=== PATIENT | male | born 1980 | race Caucasian/White ===

== ENCOUNTER 2021-03-18 12:36 | Outpatient (CLI) | payer OTHER ==
[2021-03-18 13:26] VITALS: BP 138/86
--- NOTE | 2021-03-18 13:26 | SLEEP CARE CONSULTATION ---
Information from patient questionnaire entered by Tanika Bone. I have reviewed and concur with the information entered by Tanika Bone. This document represents the service I personally performed and the decisions made by me, Rosette Limon ARNP. History of Present Illness Service Date and Time: 03/18/2021 1236 Reason for Visit: New patient Chief Complaint: reports: Unrefreshed sleep, Snoring, Excessive daytime sleepiness, Observed pauses in breathing, Fatigue, Frequent awakenings at night Date of Onset: 20 years Usual bedtime: 10 pm Time it takes to fall asleep: 15-20 minutes Snores at night: Yes Observed to quit breathing while asleep: Yes Sleeps alone due to snoring: No Number of times waking at night: 7-8 Reasons for waking at night: reports: Snoring, Gasping for air, Bathroom Toss, Turn, or Twitch while sleeping: Yes Recalls having dreams: No Usually gets out of bed at: 6 am Feels refreshed in the morning: No Morning headache: Yes (resolves around 9 am; 3-4 times a week) Sleepy or fatigued during the day: Yes Ever fallen asleep while driving: Yes (drowsy driving, no accidents) Takes day naps: Yes (try to get one daily for about 1 hour or so) Dreams during day naps: No Prior sleep studies: Yes Year and Where: 2009 - [place], [place] - negative Additional HPI information: I had the pleasure of seeing MARSHALL LOWE today regarding the possibility of him having a sleep disorder. His current complaints are excessive daytime sleepiness, fatigue, observed pauses in breathing, snoring and unrefreshed sleep. He states that he has always been a heavy snorer. Over the last 3-4 years though he has developed a lot more fatigue and daytime sleepiness. He will even fall asleep when talking to other people at work. He has had to walk to wake up and then when sitting down again tries to go to sleep again. His is very concerned because he has pauses in breathing and she will wake him up to breathe. She is the reason he is here. He has no trouble going to sleep at night but wakes up several times a night to turn over during the night. He will wake up with headaches 3-4 times a week and will take Aleve as needed but won't have relief of the headache until later in the morning. He states that he always wakes up with a sore throat and has seen that his his uvula really long. He had a sleep study in about 2009 and was told that he snored most of the night but his oxygen did not go down the required amount. 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 - Parasomnia Symptoms Ever been unable to move upon waking from sleep: No Walks in sleep: No Talks in sleep: No Ever acted out dreams in sleep: Yes (moves his hands at night according to ) Ever felt weak in the knees when startled or emotional: No Bothered by creepy, crawly, restless sensations in legs: No Problems with memory or concentration: No Subjective Initial [place] Sleepiness Scale score: 20 (in 2020) Past Medical History Past Medical History: reports: Other (heartburn occasionally) Social History The patient's occupation is a [employer]. Patient is and lives in [place]. Have you smoked in the past 12 months: No Cigarettes per day (20/pack): 15 Years of smokin Quit date: 2015 Smoking Pack Years: 14.0 Alcohol use: Yes Alcohol amount and frequency: 3-4 drinks every couple of months Caffeine use: Yes Caffeine amount and frequency: 3 cups every day Family History Family history of sleep disordered breathing: Yes Family Hx Sleep Apnea: Sibling: Snoring Allergies and Home Medications Drug allergies reviewed: Yes (NKDA) Home medication list reviewed: Yes Allergy and home medication list: OTC Prilosec, prn Review of Systems Weight gain over past 5 years: 20 Cardiovascular: denies: high blood pressure Gastrointestinal: reports: heartburn Neurological: reports: headaches Psychiatric: reports: other (feel in a funk). denies: Attention Deficit Hyperactivity, anxiety, depression, mood disorder Ear/Nose/Throat: reports: dry mouth/throat, injury to nose (broken many times). denies: tonsillectomy Endocrine: denies: thyroid disease Immunologic: denies: allergies to food or environment Physical Exam Blood Pressure: 138/86 Cuff size: wrist Heart Rate: 83 O2 Saturation: 96 Height: 5 ft 10 in Weight: 323 lb Body Mass Index: 46.3 BMI Classification: Morbidly Obese Neck circumference: 20.5 (inches) Mouth and throat: narrow oropharynx Soft palate: normal Hard palate: arched Uvula: edematous Uvula visualization: 50% Mallampati Class II Tongue: normal in size Tonsils: 1+ Neck: normal w/o lymphadenopathy or thyromegaly Heart: regular rate and rhythm Lungs: clear bilaterally Impression and Plan 1. Suspected Obstructive Sleep Apnea-Hypopnea Syndrome, as suggested by a history of loud and irregular snoring, observed cessation of breath while asleep, gasping or choking in sleep, morning headache, frequent awakening during the night, unrefreshed sleep, and excessive daytime sleepiness. Narrow oropharynx and obesity are common predisposing factors for obstructive sleep apnea-hypopnea syndrome. I recommend proceeding to polysomnography to confirm the diagnosis and to assess severity. If the patient has significant sleep disordered breathing, a manual CPAP titration study will also be performed to find the optimal treatment pressure. I informed the patient of what the sleep studies involve and after some discussion, obtained agreement to proceed. The pathophysiology of obstructive sleep apnea-hypopnea syndrome was discussed with the patient and health risks of cardiovascular and cerebrovascular disease if not treated. AASM brochure for obstructive sleep apnea-hypopnea syndrome given and reviewed. Risks of drowsy driving discussed in detail and patient advised to avoid long distance driving and to stick puller at the first sign of drowsiness. Patient agreed to plan. * Schedule polysomnography +- manual CPAP titration study and return in 1-2 wee ks after the study to discuss result and initiate therapy. * Avoid long distance driving or driving when feeling sleepy. * Avoid alcohol, sedative and muscle relaxant around bedtime. * Attempt to lose weight. * Review instructions provided by trained office staff on how to prepare for the sleep study. * Return for follow-up after sleep study completed. Counseling Topics: Weight loss health impact Visit Type: In Office Time Spent with Patient (minutes): 30 Provider Statement: I spent 100% of the Face to Face Visit with the patient with greater than 50% spent counseling the patient and coordination of care.
== END 2021-03-18 12:37 | disposition home or self-care (01) ==
LOC: SC 12:36
PROVIDERS: ATTEND Nurse Practitioner Family
DX: R06.83 Snoring (principal); G47.8 Other sleep disorders; R06.81 Apnea, not elsewhere classified; R51.9 Headache, unspecified; G47.10 Hypersomnia, unspecified; E66.01 Morbid (severe) obesity due to excess calories; Z68.42 Body mass index [BMI] 45.0-49.9, adult
CPT/HCPCS: 99203; 99212

== ENCOUNTER 2021-03-24 10:54 | Outpatient (CLI) | payer OTHER | END 2021-03-24 10:55 | disposition home or self-care (01) | LOC: SC 10:54 | PROVIDERS: ATTEND Nurse Practitioner Family | DX: G47.33 Obstructive sleep apnea (adult) (pediatric) (principal); R09.02 Hypoxemia; R00.0 Tachycardia, unspecified; Z68.42 Body mass index [BMI] 45.0-49.9, adult | CPT/HCPCS: 95806 ==

== ENCOUNTER 2021-03-31 16:07 | Outpatient (CLI) | payer OTHER ==
--- NOTE | 2021-03-31 16:34 | SLEEP CARE CONSULTATION ---
Information from patient questionnaire entered by Tanika Bone. I have reviewed and concur with the information entered by Tanika Bone. This document represents the service I personally performed and the decisions made by , Rosette Limon ARNP. History of Present Illness Service Date and Time: 03/31/2021 1607 Initial [place] Sleepiness Scale score: 20 (in 2020) Current [place] Sleepiness Scale score: 21 Additional HPI information: MARSHALL LOWE returns for follow up and results of the recently performed home sleep study. I explained the pathophysiology behind obstructive sleep apnea. We then spent quite a bit of time discussing different treatment options. For mild obstructive sleep apnea, surgery and oral appliance are alternatives to nasal CPAP therapy but in moderate or severe cases, nasal CPAP is the most effective and reliable treatment. Because apnea is primarily in supine position, then positional management therapy could be effective. Methods discussed such as positioning with pillows, using a T-shirt with tennis balls in the back, and shown commercial products that have a pillow format on back to prevent supine sleep. I reviewed the impact of weight changes on sleep apnea and strongly recommended losing weight. After some discussion, the patient opted to go with the nasal CPAP therapy. Nasal autoCPAP set at 4-20 cmH20 will be ordered with rationale explained. A manual titration study will be ordered if unable to find optimal pressure with office adjustments. I explained how CPAP machine works with sample devices Respironics Dreamstation and ResWordinaire [id number] and what to expect when using the machine. Using CPAP every night in order to get used to it was emphasized. Patient advised to put CPAP mask on before getting into bed so as not to fall asleep without CPAP. To assist acclimation to CPAP use, it could also be used for a short time during day while reading or watching TV. The patient was instructed to call the CPAP supplier to discuss any mechanical problem that may occur. If the mask given is uncomfortable or is difficult to keep on through the night even with adjustment, contact the CPAP supplier as many will replace with another mask style if notified before 30 days. If snoring or perceives is not getting enough air or too much air from the machine, notify this office. [facility] PAP tips reviewed and given to patient. Patient counseled not drink alcohol less than 4 hours before bedtime as it can increase snoring and apnea. Patient was cautioned about risks of drowsy driving until sleepiness symptoms resolve. Sleep Study - Results Type of Sleep Study: Home sleep study Prior sleep studies: Yes Year and Where: 2009 - [place] - negative Polysomnography/Home Sleep Study results: Physician Impression: The quality of the study is good. The length of the study is adequate (> 240 minutes). Please also see the tabulated and graphic data. 1. Obstructive Sleep Apnea-Hypopnea (ICD-10 G47.33), very severe, with an AHI of 89.0/hr and akil SaO2 of 49%. During the study, the patient had 581 apneas (580 obstructive, 0 central, 1 mixed) and 34 hypopneas. The longest episode lasted 71.0 seconds. The respiratory events occurred independently of sleep stage and body position (supine AHI was 89.4 and non-supine, 75.73). 2. Hypoxemia (ICD-10 R09.02), very severe, with the lowest oxygen saturation of 49 % and 389.9 minutes with SaO2 under 90%. Baseline oxygen saturation was low (Average oxygen saturation was 75%). 3. Tachycardia, with maximum recoded heart rate of 127 beats per minute. Allergies and Home Medications Home medication list reviewed: Yes (no changes) Review of Systems Review of systems same as previous: Yes (no changes) Physical Exam Heart Rate: 97 O2 Saturation: 95 Height: 5 ft 10 in Weight: 319 lb Body Mass Index: 45.8 BMI Classification: Morbidly Obese Impression and Plan 1. Obstructive Sleep Apnea-Hypopnea Syndrome, very severe, with lowest oxygen s aturation of 49%. Obviously this is the cause of the patients symptoms of unrefreshed sleep, and excessive daytime sleepiness. Positive pressure therapy could benefit his overall health and reduce risks of cardiovascular or cerebrovascular adverse events. As mentioned above, the patient will be started on nasal autoCPAP therapy with pressure set at 4-20 cmH2O. A manual titration study will be completed if unable to find optimal treatment pressure with office adjustments. Compliance guidelines also reviewed. A copy of compliance guidelines will be given for reference at check out. 2. Hypoxemia, very severe, with the lowest oxygen saturation of 49 % and 389.9 minutes with SaO2 under 90%. His baseline oxygen saturation was low with an average oxygen saturation of 75%. Patient advised to follow up with his PCP for low baseline oxygen saturation, which may indicate underlying cardiopulmonary disorders such as COPD, congestive heart failure, obesity hypoventilation, etc. Further work up with PFTs, ABGs, may be beneficial. 3. Tachycardia, with maximum recorded heart rate of 127 beats per minute. Patient advised to follow up with PCP to consider cardiac monitoring for the recorded tachycardia. * Nasal auto CPAP therapy, pressure at 4-20 cm H2O. * Follow up with PCP for very severe hypoxemia and tachycardia. * Attempt to lose weight. * Avoid alcohol consumption near bedtime. * Avoid supine sleep until using CPAP. * The patient is again cautioned about driving until sleepiness completely resolves. * Return one month after CPAP obtained. I will assess response to therapy and compliance at that time. Counseling Topics: Weight loss health impact Visit Type: In Office Time Spent with Patient (minutes): 20 Provider Statement: I spent 100% of the Face to Face Visit with the patient with greater than 50% spent counseling the patient and coordination of care.
== END 2021-03-31 16:08 | disposition home or self-care (01) ==
LOC: SC 16:07
PROVIDERS: ATTEND Nurse Practitioner Family
DX: G47.33 Obstructive sleep apnea (adult) (pediatric) (principal); R09.02 Hypoxemia; R00.0 Tachycardia, unspecified; E66.01 Morbid (severe) obesity due to excess calories; Z68.42 Body mass index [BMI] 45.0-49.9, adult
CPT/HCPCS: 99212; 99213

== ENCOUNTER 2021-05-20 15:42 | Outpatient (CLI) | payer OTHER ==
--- NOTE | 2021-05-20 16:40 | SLEEP CARE CONSULTATION ---
Information from patient questionnaire entered by Axel Wheat. I have reviewed and concur with the information entered by Axel Wheat. This document represents the service I personally performed and the decisions made by , Rosette Limon ARNP. History of Present Illness Service Date and Time: 05/20/2021 1542 Previous diagnosis: Very Severe, Obstructive Sleep Apnea-Hypopnea Syndrome AHI: 89.0 Reason for follow up: first compliance (Set up 04/12/21) Equipment type: CPAP Equipment obtained from: Prescription Eyewear (got initial supplies) Mask style: Nasal Backup mask available: No (will need to keep old mask when replaced) Last cushion change: 6 weeks Prior sleep studies: Yes Year and Where: 2020 [facility], 2009 - [place] - negative Type of Sleep Study: Home sleep study HPI additional information: MARSHALL LOWE was diagnosed to have very severe, AHI 89.0, obstructive sleep apnea-hypopnea syndrome and returned today for CPAP therapy first compliance follow-up. CPAP Compliance Data - Data Reviewed with Patient Average duration of nightly device use: 6 h 37 min Compliance rate %: 100 Current pressure setting (cmH2O): 4-20 (median 9.8, avg 12.6, max 14.4) Average residual AHI: 1.3 Subjective Patient concerns: reports: nasal congestion, dry mouth, nose, throat. denies: aerophagia, mask discomfort, air blowing in eyes, mask leak noise, condensation in mask/hose, epistaxis, other Observed to snore while using device: No Current pressure setting perceived as: comfortable On therapy, patient: reports: sleeping better, awakening more refreshed, being more awake and alert during the day, more rested overall. denies: drowsiness while driving Initial [place] Sleepiness Scale score: 20 (in 2020) Current [place] Sleepiness Scale score: 0 Allergies and Home Medications Home medication list reviewed: Yes (no changes) Review of Systems Review of systems same as previous: Yes (no changes) Physical Exam Heart Rate: 92 O2 Saturation: 96 Height: 5 ft 10 in Weight: 321 lb Body Mass Index: 46.0 BMI Classification: Morbidly Obese Impression and Plan 1. Obstructive Sleep Apnea-Hypopnea Syndrome, very severe, with excellent treatment compliance and good apnea control. On CPAP therapy, the patient has better sleep quality and is more rested overall. Marshall has been having some mouth dryness. Oral dryness can be reduced by adjusting humidity setting higher or heated hose lower or by adjusting both settings. Verbal instructions given on how to change humidity and heated hose settings with rationale explaining why to change. Patient is very satisfied with current CPAP therapy and pressures are comfortable. The patients pressure will be changed to autoCPAP 10-14 cmH20 to reflect pressures being used. Patient advised to contact me if pressure change is uncomfortable so that it can be adjusted. Goals for apnea control discussed. Patient states he will be trying to lose weight now. Currently patients BMI is 46.0. Obesity increases the risk of apnea, CPAP pressure requirements and overall health risks especially cardiovascular and diabetes. Thus patient is advised to continue to lose weight. The patient's CPAP pressure range should accommodate some weight loss. Symptoms to report for additional pressure adjus tment discussed. Patient's apnea severity and rationale for treatment to reduce apnea, improve sleep quality and reduce cardiovascular and cerebrovascular events was reviewed. Patient was encouraged to lose weight for their overall health and to reduce apneas. * Change auto CPAP pressure to 10-14 cmH2O * Notify me if snoring with mask or feeling that the pressure is too much or too little * Attempt to lose weight * Call this office if any problems using CPAP * Return for follow up in 1-2 months, or sooner if concerns arise Counseling Topics: Spare mask, Weight loss health impact Visit Type: In Office Time Spent with Patient (minutes): 20 Provider Statement: I spent 100% of the Face to Face Visit with the patient with greater than 50% spent counseling the patient and coordination of care.
== END 2021-05-20 15:43 | disposition home or self-care (01) ==
LOC: SC 15:42
PROVIDERS: ATTEND Nurse Practitioner Family
DX: G47.33 Obstructive sleep apnea (adult) (pediatric) (principal); E66.01 Morbid (severe) obesity due to excess calories; Z68.42 Body mass index [BMI] 45.0-49.9, adult
CPT/HCPCS: 99212; 99213